=== PATIENT | male | born 1945 | race Caucasian/White ===

== ENCOUNTER → 2017-01-11 | Outpatient (REF) | payer MEDICARE, OTHER ==
[2017-01-11 17:24] LABS: VITAMIN B12 LEVEL 720 PG/ML (247-911)
[2017-01-14 00:08] LABS: Lyme Disease IgG/IgM Antibodie <0.91 ISR (0.00-0.90); Lyme Disease IgM Ab Quantitati <0.80 index (0.00-0.79)
== END ==
LOC: M LAB REF 16:39
PROVIDERS: ATTEND Nurse Practitioner Adult Health
DX: I69.911 Memory deficit following unspecified cerebrovascular disease (principal); H90.3 Sensorineural hearing loss, bilateral

== ENCOUNTER → 2018-05-21 | Outpatient (REF) | payer MEDICARE, OTHER ==
[2018-05-21 14:30] LABS: INR 1.01; PROTHROMBIN TIME 13.4 SECONDS (12.1-14.4)
[2018-05-21 14:31] LABS: PARTIAL THROMBOPLASTIN TIME 28.6 SECONDS (25.4-37.6)
== END ==
LOC: M LAB REF 13:43
DX: I70.211 Atherosclerosis of native arteries of extremities with intermittent claudication, right leg (principal); D69.8 Other specified hemorrhagic conditions; Z01.818 Encounter for other preprocedural examination
CPT/HCPCS: 85610

== ENCOUNTER → 2021-01-07 | Outpatient (REF) | payer MEDICARE, OTHER ==
[2021-01-07 13:28] LABS: VITAMIN B12 LEVEL 951 PG/ML (247-911)
== END ==
LOC: M LAB REF 12:17
PROVIDERS: ATTEND Nurse Practitioner Adult Health
DX: R41.3 Other amnesia (principal)

== ENCOUNTER 2021-02-13 21:41 | Emergency (ER) | payer MEDICARE, OTHER ==
[~2021-02-13] VITALS: Ht 177.8 cm; Wt 97.7 kg
[2021-02-13] MEDS ORDERED: LOSA100T50 PO (21:55)
[2021-02-13] MEDS ORDERED: ESOM40CA35 PO (21:55)
[2021-02-13] MEDS ORDERED: TAMS1CAP17 PO (21:55)
[2021-02-13] MEDS ORDERED: FLUO40CA PO (21:55)
[2021-02-13] MEDS ORDERED: TRAM50TA2 PO (21:55)
[2021-02-13] MEDS ORDERED: ROSU10TA6 PO (21:55)
[2021-02-13] MEDS ORDERED: FISH10002 PO (21:55)
[2021-02-13 22:24] LABS: BASO # 0.1 10^3/uL (0.0-0.2); BASO % 0.9 % (0.0-1.0); EOS # 0.2 10^3/uL (0.0-0.5); EOS % 2.6 % (0.0-3.0); HEMATOCRIT 35.4 % (42.0-52.0); HEMOGLOBIN 12.2 g/dl (13.5-17.5); LYMPH % 17.2 % (24.0-44.0); MEAN CORPUSCULAR HEMOGLOBIN 33.1 pg (27.0-33.0); MEAN CORPUSCULAR HGB CONC 34.5 g/dl (32.0-36.5); MEAN CORPUSCULAR VOLUME 95.9 fl (80.0-96.0); MONO # 0.4 10^3/uL (0.0-0.8); MONO % 6.5 % (2.0-8.0); NEUTROPHILS # 4.2 10^3/uL (1.5-8.5); NEUTROPHILS % 72.3 % (36.0-66.0); PLATELET COUNT, AUTOMATED 216 10^3/uL (150-450); RED BLOOD COUNT 3.69 10^6/uL (4.30-6.10); WHITE BLOOD COUNT 5.8 10^3/uL (4.0-10.0)
[2021-02-13 22:39] LABS: BLOOD UREA NITROGEN 19 MG/DL (7-18); CALCIUM LEVEL 8.3 MG/DL (8.8-10.2); CARBON DIOXIDE LEVEL 27 MEQ/L (21-32); CHLORIDE LEVEL 107 MEQ/L (98-107); CREATININE FOR GFR 1.12 MG/DL (0.70-1.30); GLOMERULAR FILTRATION RATE > 60.0 (>42); GLUCOSE, FASTING 148 MG/DL (70-100); POTASSIUM SERUM 3.8 MEQ/L (3.5-5.1); SODIUM LEVEL 139 MEQ/L (136-145)
[2021-02-14] MEDS ORDERED: NS 1,000 ML IV ONE (00:45)
[2021-02-14 01:24] LABS: LIPASE 100 U/L (73-393); TROPONIN I < 0.02 NG/ML (< 0.10)
[2021-02-14] MEDS ORDERED: ONDANSETRON 4MG/2ML VIAL IV ONE (02:45)
[2021-02-14] MEDS ORDERED: FAMOTIDINE INJ 20MG/2ML VIAL (S0028 PER 1) IVP ONE (02:45)
[2021-02-14] MEDS ORDERED: MECLIZINE 25 MG TABLET PO ONE (03:25)
--- NOTE | 2021-02-14 04:39 | REPVR ---
PROCEDURE INFORMATION: Exam: CT Head Without Contrast Exam date and time: 02/14/2021 3:31 AM Age: 75 years old Clinical indication: Dizziness; Additional info: Vertignous dizziness TECHNIQUE: Imaging protocol: Computed tomography of the head without contrast. Radiation optimization: All CT scans at this facility use at least one of these dose optimization techniques: automated exposure control; mA and/or kV adjustment per patient size (includes targeted exams where dose is matched to clinical indication); or iterative reconstruction. COMPARISON: No relevant prior studies available. FINDINGS: Brain: Normal. No hemorrhage. Unremarkable white matter. No mass effect. Cerebral ventricles: No ventriculomegaly. Paranasal sinuses: Visualized sinuses are unremarkable. No fluid levels. Mastoid air cells: Visualized mastoid air cells are well aerated. Bones/joints: Unremarkable. No acute fracture. Soft tissues: Unremarkable. IMPRESSION: No acute intracranial abnormality. Electronically signed by: Dipak Cummings On 02/14/2021 04:39:28 AM
[2021-02-14 05:15] VITALS: BP 150/71
[2021-02-14] MEDS ORDERED: MECL1TAB31 PO (05:15)
== END 2021-02-14 06:10 | disposition home or self-care (01) ==
LOC: M ED 21:41
DX: H81.399 Other peripheral vertigo, unspecified ear (principal); R11.2 Nausea with vomiting, unspecified; I10 Essential (primary) hypertension; Z79.899 Other long term (current) drug therapy
CPT/HCPCS: 70450; 80048; 83690; 84484; 85025; 93041; 94760; 96361; 96374; 96375; 99285; J2405

== ENCOUNTER → 2021-03-17 | Outpatient (CLI) | payer MEDICARE, OTHER ==
[~2021-03-17] MED LIST: ESOM40CA35 PO; FISH10002 PO; FLUO40CA PO; LOSA100T50 PO; MECL1TAB31 PO; PROHANCE 279.3MG/ML 15ML VIAL As Ordered ONE; PROHANCE 279.3MG/ML 5ML VIAL As Ordered ONE; ROSU10TA6 PO; TAMS1CAP17 PO; TRAM50TA2 PO
--- NOTE | 2021-03-17 18:22 | REPVR ---
PROCEDURE INFORMATION: Exam: MRA Neck Without Contrast Exam date and time: 03/17/2021 5:11 PM Age: 75 years old Clinical indication: Condition or disease; Transient cerebral ischemic attacks (tia); Type not specified; Additional info: TIA, HX of vascular disease TECHNIQUE: Imaging protocol: Magnetic resonance angiography of the neck without contrast. COMPARISON: CT Head without contrast 02/14/2021 3:30 AM FINDINGS: Right common carotid artery: Artifact limits evaluation of the proximal right common carotid artery. No significant stenosis or occlusion of the remaining right common carotid artery. Right internal carotid artery: Less than 50% stenosis of the proximal right internal carotid artery. This is best visualized on source images. Right external carotid artery: Moderate stenosis of the proximal right external carotid artery. Right vertebral artery: Severe stenosis at the origin of the right vertebral artery, with mild stenosis at the origin of the left vertebral artery. Artifact can contribute to these findings. Artifact limits evaluation of the bilateral distal V3 and proximal V4 segments of the vertebral arteries, without occlusion when correlated with source images. Left common carotid artery: Mild stenosis of the distal left common carotid artery. Artifact limits evaluation of the proximal left common carotid artery. Left internal carotid artery: Less than 50% stenosis of the proximal left internal carotid artery. Left external carotid artery: No significant stenosis. No occlusion. Left vertebral artery: See above. IMPRESSION: 1. 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 2. Less than 50% stenosis of the proximal right internal carotid artery. 3. Mild stenosis of the distal left common carotid artery. 4. Less than 50% stenosis of the proximal left internal carotid artery. 5. Severe stenosis at the origin of the right vertebral artery, with mild stenosis at the origin of the left vertebral artery. Artifact can contribute to these findings. 6. Additional findings described above. REFERENCES: NASCET CRITERIA. The degree of internal carotid artery stenosis is based on NASCET criteria. Normal is no stenosis. Mild is less than 50% stenosis. Moderate is 50-69% stenosis. Severe is 70% to 99% stenosis. Total occlusion is no detectable patent lumen. Electronically signed by: Elliott Lozano On 03/17/2021 18:21:55 PM
--- NOTE | 2021-03-17 18:33 | REPVR ---
PROCEDURE INFORMATION: Exam: MR Head Without and With Contrast Exam date and time: 03/17/2021 5:10 PM Age: 75 years old Clinical indication: Other: TIA; Additional info: TIA, HX of vascular disease TECHNIQUE: Imaging protocol: MR of the head without and with intravenous contrast. Contrast material: PROHANCE; Contrast volume: 19 ml; Contrast route: INTRAVENOUS (IV); COMPARISON: CT Head without contrast 02/14/2021 3:30 AM FINDINGS: Brain: No restricted diffusion within the brain to suggest an acute infarct. There is a focus of T2 hyperintensity in the region of the inferior aspect of the left basal ganglia, consistent with a chronic lacunar infarct or dilated perivascular space. There is mild adjacent gliosis. There are scattered foci of FLAIR hyperintensity within the cerebral white matter. There is no mass effect or restricted diffusion associated with these foci. In a patient this age, this likely represents chronic small vessel ischemic disease. No significant magnetic susceptibility intracerebral blood products/hemosiderin visualized. No abnormally enhancing intracranial mass is identified. Cerebral ventricles: There is mild prominence of the ventricles and sulci, compatible with atrophy. Bones/joints: Unremarkable, as visualized. Paranasal sinuses: Normal as visualized. No acute sinusitis. Mastoid air cells: No mastoid effusion. Orbital cavity: A small lamina papyracea deformity is identified of the medial right orbital wall, consistent with prior orbital trauma. This is likely chronic. Soft tissues: Unremarkable, as visualized. IMPRESSION: 1. No acute infarct. 2. Chronic lacunar infarct or dilated perivascular space in the region of the inferior left basal ganglia. There is mild adjacent gliosis. 3. Mild white matter disease, likely representing chronic small vessel ischemic disease. 4. Mild atrophy. 5. Additional findings described above. Electronically signed by: Elliott Lozano On 03/17/2021 18:33:13 PM
== END ==
LOC: M RAD 15:49
PROVIDERS: ATTEND Nurse Practitioner Adult Health
DX: G45.9 Transient cerebral ischemic attack, unspecified (principal); I73.9 Peripheral vascular disease, unspecified
CPT/HCPCS: 70547; 70553; A9576

== ENCOUNTER → 2022-03-22 | Outpatient (CLI) | payer MEDICARE, OTHER ==
[~2022-03-22] MED LIST changes: +CLOP75TA2 PO; +ECOT81TA5 PO; +LOSA100T45 PO; -LOSA100T50 PO; +MEMA1TAB3 PO; +MIRT-10 PO; +MULT-90 PO; +NOXI1TAB PO; -PROHANCE 279.3MG/ML 15ML VIAL As Ordered ONE; -PROHANCE 279.3MG/ML 5ML VIAL As Ordered ONE; +ZYRTTAB8 PO
== END ==
LOC: M LABSMTC 09:06
PROVIDERS: ATTEND Anesthesiology
DX: Z01.812 Encounter for preprocedural laboratory examination (principal); Z20.822 Contact with and (suspected) exposure to COVID-19

== ENCOUNTER 2022-03-25 09:10 | Day surgery (SDC) | payer MEDICARE, OTHER ==
[~2022-03-25] VITALS: Ht 180.3 cm; Wt 90.3 kg
[~2022-03-25 09:10] MED LIST changes: +NS 1,000 ML IV ONE
[2022-03-25] MEDS ORDERED: LIDOCAINE 2% 100MG/5ML SDV (FOR ANES.) As Ordered ONE (10:09)
[2022-03-25] MEDS ORDERED: fentaNYL 100 MCG/2 ML INJECTION As Ordered ONE (10:09)
[2022-03-25] MEDS ORDERED: propofoL 200 MG/20 ML VIAL As Ordered ONE (10:09)
[2022-03-25 11:20] VITALS: BP 183/91
== END 2022-03-25 11:37 | disposition home or self-care (01) ==
LOC: M OPP 09:10
PROVIDERS: ATTEND Internal Medicine Gastroenterology
DX: Z12.11 Encounter for screening for malignant neoplasm of colon (principal); Z86.010 Personal history of colon polyps; K57.30 Diverticulosis of large intestine without perforation or abscess without bleeding; K64.8 Other hemorrhoids; K44.9 Diaphragmatic hernia without obstruction or gangrene; K29.60 Other gastritis without bleeding; K22.89 Other specified disease of esophagus; I10 Essential (primary) hypertension; E78.5 Hyperlipidemia, unspecified; F32.9 Major depressive disorder, single episode, unspecified; K57.32 Diverticulitis of large intestine without perforation or abscess without bleeding; Z86.73 Personal history of transient ischemic attack (TIA), and cerebral infarction without residual deficits; Z87.891 Personal history of nicotine dependence; Z79.02 Long term (current) use of antithrombotics/antiplatelets; Z79.82 Long term (current) use of aspirin; Z79.899 Other long term (current) drug therapy
CPT/HCPCS: 43239; 88305; G0105; J3010

== ENCOUNTER → 2022-04-25 | Outpatient (REF) | payer MEDICARE, OTHER ==
[~2022-04-25] MED LIST changes: -NS 1,000 ML IV ONE
== END ==
LOC: M LAB REF 11:38
PROVIDERS: ATTEND Internal Medicine
DX: M10.9 Gout, unspecified (principal)

== ENCOUNTER → 2023-02-17 | Outpatient (REF) | payer MEDICARE, OTHER ==
[~2023-02-17] MED LIST changes: -LOSA100T45 PO; +LOSA100T46 PO
== END ==
LOC: M LAB REF 10:02
PROVIDERS: ATTEND Internal Medicine
DX: S91.301A Unspecified open wound, right foot, initial encounter (principal); X58.XXXA Exposure to other specified factors, initial encounter; Y99.9 Unspecified external cause status; Y92.9 Unspecified place or not applicable

== ENCOUNTER → 2023-06-28 | Outpatient (REF) | payer MEDICARE, OTHER ==
[~2023-06-28] MED LIST changes: +MECL-209 PO; -MECL1TAB31 PO
== END ==
LOC: M LAB REF 12:18
PROVIDERS: ATTEND Internal Medicine
DX: M10.071 Idiopathic gout, right ankle and foot (principal)

== ENCOUNTER → 2024-01-25 | Outpatient (CLI) | payer MEDICARE, OTHER ==
[~2024-01-25] MED LIST changes: -ROSU10TA6 PO; +ROSU10TA61 PO
== END ==
LOC: M RAD 11:46
PROVIDERS: ATTEND Internal Medicine
DX: I65.23 Occlusion and stenosis of bilateral carotid arteries (principal)

== ENCOUNTER → 2024-07-01 | Outpatient (REF) | payer MEDICARE, OTHER ==
[2024-07-01 14:49] LABS: FERRITIN 213.7 NG/ML (10.5-307.3)
== END ==
LOC: M LAB REF 12:45
PROVIDERS: ATTEND Internal Medicine
DX: D64.9 Anemia, unspecified (principal)

== ENCOUNTER → 2024-08-13 | Outpatient (CLI) | payer MEDICARE, OTHER | LOC: M RAD 13:28 | PROVIDERS: ATTEND Internal Medicine | DX: I73.9 Peripheral vascular disease, unspecified (principal) ==

== ENCOUNTER → 2024-10-21 | Outpatient (CLI) | payer MEDICARE, OTHER | LOC: M WUC 12:53 | PROVIDERS: ATTEND Internal Medicine | DX: M25.571 Pain in right ankle and joints of right foot (principal); M79.671 Pain in right foot; M19.071 Primary osteoarthritis, right ankle and foot; M77.31 Calcaneal spur, right foot; R93.6 Abnormal findings on diagnostic imaging of limbs ==